=== PATIENT | male | born 1960 | race Caucasian/White ===

== ENCOUNTER 2022-03-13 20:54 | Emergency (ER) | payer BC ==
[2022-03-13 21:02] VITALS: BP 150/80
[2022-03-13] MEDS ORDERED: lidocaine 1% 20 ML MDV SUBQ ONE (21:06)
[2022-03-13] MEDS ORDERED: LIDOCAINE 1% 2 ML VIAL SUBQ STA (21:10)
--- NOTE | 2022-03-13 21:15 | ED Physician Documentation ---
PD HPI UPPER EXT INJURY - Stated complaint Stated Complaint: L PINKY FINGER INJ - Chief complaint Chief Complaint: Laceration - History obtained from History obtained from: Patient - History of Present Illness Location: Left (Right-handed gentleman up-to-date on tetanus had a trip and fall and landed on his left pinky with a laceration there. He thinks there was bone coming out of the wound. And he pushed it back in.) Review of Systems Constitutional: reports: Reviewed and negative Ears: reports: Reviewed and negative Respiratory: reports: Reviewed and negative PD PAST MEDICAL HISTORY - Present Medications Home Medications: Ambulatory Orders Medication Instructions Recorded Confirmed cephALEXin [Keflex] 500 mg PO Q6H #20 cap 03/13/22 - Allergies Allergies/Adverse Reactions: Allergies Allergy/AdvReac Type Severity Reaction Status Date / Time No Known Drug Allergies Allergy Verified 03/13/22 20:59 PD ED PE NORMAL - Vitals Vital signs reviewed: Yes - General General: Alert and oriented X 3, No acute distress - Extremities Extremities: Other (On the palmar surface of the left for fifth finger there is a curvilinear 2 cm laceration overlying the PIP with no distal neurovascular compromise) - Neuro Neuro: Alert and oriented X 3 - Psych Psych: Normal mood, Normal affect Results - Vitals Vitals: Vital Signs - 24 hr 03/13/22 03/13/22 20:59 21:45 Temperature 36.5 C Heart Rate 62 70 Respiratory 16 14 Rate Blood Pressure 150/80 H O2 Saturation 98 98 Oxygen O2 Source Room air - Rads (name of study) L pinky XR Radiology: EMP read contemporaneously (NAD) Procedures - Laceration (location) L 5th finger Length in cm: 2 Wound type: Curved Neurovascular status: Sensory intact, Motor intact Tendon involvement: Tendon intact Anesthesia: Lidocaine 1% Wound preparation: Irrigated copiously NS Skin layer closure: Nylon, Interrupted, Size #-0 - enter number (4-0), Sutures - enter # (5) Other: Patient tolerated well, No complications, Neurovascular intact, Tetanus UTD (2018) PD MEDICAL DECISION MAKING - ED course ED course: I do not see any bony injury on x-ray and there is no bone visible in the wound. His history could be consistent with a PIP dislocation causing the laceration, as such it should probably be treated as an open fracture and after thorough irrigation and wound closure he was placed in a metal foam finger splint and on antibiotics. Departure - Departure Disposition: 01 Home, Self Care Clinical Impression: Finger laceration Qualifiers: Encounter type: initial encounter Finger: little finger Damage to nail status: without damage Foreign body presence: without foreign body Laterality: left Qualified Code(s): S61.217A - Laceration without foreign body of left little finger without damage to nail, initial encounter Condition: Good Record reviewed to determine appropriate education?: Yes Instructions: ED Laceration Hand Prescriptions: cephALEXin [Keflex] 500 mg PO Q6H #20 cap Comments: Come back for any signs of infection which would include: Redness, swelling, drainage, increased pain, or fevers. You can wash it soap and water. Keep it covered and moist with bacitracin ointment which is available over the counter; avoid neosporin. Follow-up with your physician in About 14 days for suture removal. I would keep the splint on fairly religiously for about 2 weeks. After that gentle range of motion exercises. Given the possible joint injury, reasonable to follow-up with an orthopedist on return home. Discharge Date/Time: 03/13/22 21:45
[2022-03-13] MEDS ORDERED: CEPHALEXIN 250 MG Prepack 8 CAP BOTTLE PO STA (21:30)
--- NOTE | 2022-03-13 22:31 | XRAY Report ---
PROCEDURE: Finger(s) LT INDICATIONS: finger inj TECHNIQUE: AP hand, 4 views of the with finger(s) acquired. COMPARISON: None FINDINGS: Bones: No fractures or dislocations. No suspicious bony lesions. Soft tissues: No suspicious soft tissue calcifications. IMPRESSION: No fracture or foreign body Reviewed by: Jani Winston MD on 03/13/2022 9:30 PM [facility] Approved by: Jani Winston MD on 03/13/2022 9:30 PM [facility] Station ID: [id number]
== END 2022-03-13 21:45 | disposition home or self-care (01) ==
LOC: ED 20:54
DX: S61.217A Laceration without foreign body of left little finger without damage to nail, initial encounter (principal); W18.30XA Fall on same level, unspecified, initial encounter
CPT/HCPCS: 12001; 99283